=== PATIENT | female | born 1990 | race Caucasian/White ===

== ENCOUNTER → 2017-05-28 | Outpatient (CLI) | payer OTHER ==
[2017-05-28 15:31] LABS: IRON 25 ug/dL (50-175); TOTAL IRON BINDING CAPACITY 401 ug/dL (250-450); TRANSFERRIN 299 mg/dL (202-364)
== END ==
LOC: LAB 12:53
PROVIDERS: ATTEND Internal Medicine Gastroenterology
DX: R10.11 Right upper quadrant pain (principal); R94.5 Abnormal results of liver function studies
CPT/HCPCS: 36415; 80074; 82103; 82390; 82525; 82728; 83540; 83550; 84466; 86256; 86308